=== PATIENT | male | born 1935 | race Caucasian/White ===

== ENCOUNTER → 2022-08-01 | Outpatient (CLI) | payer MEDICARE, BC ==
--- NOTE | 2022-08-01 08:50 | CT ---
EXAMINATION TYPE: CT lumbar spine wo con DATE OF EXAM: 08/01/2022 COMPARISON: None HISTORY: 86-year-old male M47.817, Spondylosis w/o myelopathy or radiculopathy TECHNIQUE: Contiguous axial scanning of the lumbar spine without IV contrast. Coronal and sagittal re constructions performed. CT DLP: 748.3 mGycm Automated exposure control for dose reduction was used. FINDINGS: Partially visualized probable large cyst of the right liver lobe measuring at least 5.2 cm. Partially visualized hiatal hernia, at least moderate in size. Partially visualized sigmoid diverticulosis. There is moderate to advanced degenerative disc disease especially from L2 through S1 levels with donnie iable disc space narrowing, disc bulging, and vacuum phenomenon. Some associated sclerotic degenerati ve endplate change at L2-L3. Ligamentum flavum thickening mid to lower lumbar spine with hypertrophic facet arthropathy. There are left-sided L5 pars defect. Degenerative grade 1 retrolisthesis L2-L3 and anterolisthesis L4-L5. Remaining alignment is maintaine d. Anterior bridging endplate spondylosis T10-T11. At T11-T12, no significant canal or foraminal stenosis. At T12-L1, no significant canal or foraminal stenosis. At L1-L2, minimal bulging disc and facet arthropathy. Changes result in no significant canal or kory inal stenosis. At L2-L3, hypertrophic facet arthropathy with degenerative grade 1 retrolisthesis, diffuse disc bulge . Changes result in overall mild to moderate spinal canal stenosis along with moderate left and mild right neuroforaminal stenosis. At L3-L4, diffuse disc bulge and ligamentum flavum thickening along with facet arthropathy. Changes r esult in mild spinal canal stenosis with moderate bilateral neuroforaminal stenosis. At L4-L5, hypertrophic facet arthropathy with grade 1 anterolisthesis and diffuse disc bulge. Changes result in at least moderate spinal canal stenosis. Moderate bilateral neural foraminal stenosis. The re may be some right lateral recess stenosis. At L5-S1, there is diffuse disc bulge. Disc material may abut the traversing right S1 nerve root. No significant spinal canal stenosis. Changes result in moderate to severe right and moderate left neuro foraminal stenosis. IMPRESSION: 1. MODERATE TO ADVANCED DEGENERATIVE DISC DISEASE ESPECIALLY L2-S1 LEVELS. SCATTERED LIGAMENTUM FLAVU M THICKENING AND PROMINENT HYPERTROPHIC FACET ARTHROPATHY THROUGHOUT. 2. 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 3. 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 4. VARIABLE MODERATE NEUROFORAMINAL STENOSES OUTLINED ABOVE, MORE MODERATE TO SEVERE ON THE RIGHT AT L5-S1. 5. THERE MAY BE SOME RIGHT LATERAL RECESS STENOSIS AT L4-L5. IN ADDITION, AT L5-S1, DISC BULGE MAY AB UT THE TRAVERSING RIGHT S1 NERVE ROOT. 6. INCIDENTAL LEFT-SIDED L5 PARS INTERARTICULARIS DEFECT.
== END | disposition home or self-care (01) ==
LOC: RADCTMAIN 07:42
PROVIDERS: ATTEND Physical Medicine & Rehabilitation
DX: M43.16 Spondylolisthesis, lumbar region (principal); M51.17 Intervertebral disc disorders with radiculopathy, lumbosacral region; M47.817 Spondylosis without myelopathy or radiculopathy, lumbosacral region; M16.0 Bilateral primary osteoarthritis of hip
CPT/HCPCS: 72131